=== PATIENT | female | born 1975 | race African-American/Black ===

== ENCOUNTER 2019-06-11 10:34 | Emergency (ER) | payer MEDICARE ==
[~2019-06-11] VITALS: Ht 182.9 cm; Wt 158.8 kg
[2019-06-11 11:13] LABS: Urine Bacteria NONE SEEN /hpf (None Seen); Urine Blood Negative /uL (Negative); Urine Specific Gravity 1.013 (1.001-1.035); Urine WBC 1 /hpf (0 - 5)
[2019-06-11 11:40] LABS: Basophils # (auto) 0.1 uL; Eosinophils # (auto) 0 uL; Monocytes # (auto) 0.4 uL; Nucleated Red Blood Cells % 0.1 %
[2019-06-11 11:42] LABS: Basophils % (auto) 0.8 % (0.0-2.0); Eosinophils % (auto) 0.4 % (0.0-7.0); Hematocrit 40.1 % (36.0-46.0); Lymphocytes # (auto) 1.3 uL; Lymphocytes % (auto) 17.8 % (10.0-50.0); Mean Corpuscular Hemoglobin 24.1 pg (28.0-32.0); Mean Corpuscular Hgb Conc. 32.4 g/dL (32.0-36.0); Mean Corpuscular Volume 74.2 fL (80.0-100.0); Monocytes % (auto) 5.6 % (0.0-12.0); Neutrophils # (auto) 5.5 uL; Neutrophils % (auto) 75.4 % (37.0-80.0); Platelet Count (auto) 307 10^3/uL (140-450); Red Cell Distribution Width 14.4 % (11.8-14.3); White Blood Cell 7.3 10^3/uL (4.4-10.8)
[2019-06-11 11:53] LABS: Alanine Aminotransferase 14 U/L (13-56); Albumin 3.5 g/dL (3.4-5.0); Aspartate Aminotransferase 13 U/L (15-37); Blood Urea Nitrogen 9 mg/dL (7-18); Calcium 8.7 mg/dL (8.5-10.1); Chloride 108 mmol/L (98-107); Glucose 89 mg/dL (74-106); Potassium 3.8 mmol/L (3.5-5.1); Sodium 140 mmol/L (136-145)
[2019-06-11 11:58] LABS: Alkaline Phosphatase 72 U/L (45-117); Anion Gap 5 (5-15); BUN/Creatinine Ratio 11.1; Bilirubin, Total 0.5 mg/dL (0.2-1.0); Carbon Dioxide 27 mmol/L (21-32); GFR African American 99 mL/min; GFR Non-African American 82 mL/min; Total Protein 7.8 g/dL (6.4-8.2)
[2019-06-11 15:11] VITALS: BP 151/99
== END 2019-06-11 15:13 | disposition home or self-care (01) ==
LOC: ER 10:36
DX: K80.20 Calculus of gallbladder without cholecystitis without obstruction (principal)
CPT/HCPCS: 36415; 76705; 80053; 81001; 81025; 84484; 85025